=== PATIENT | female | born 1955 | race Caucasian/White ===

== ENCOUNTER 2016-06-01 06:07 | Day surgery (SDC) | payer OTHER ==
[~2016-06-01] VITALS: Ht 157.5 cm; Wt 66.9 kg
[2016-06-01 07:01] VITALS: Ht 157.5 cm; Wt 66.9 kg
[2016-06-01] MEDS ORDERED: [UNRECOGNIZED DRUG - OTHER] (07:09)
[2016-06-01] MEDS ORDERED: ZETIA (07:09)
[2016-06-01 07:54] VITALS: BP 118/60; PULSE 70; RESP 23
[2016-06-01] MEDS ORDERED: MIDAZOLAM 1 MG/ML 2 ML INJ ONE ×2 (08:29)
[2016-06-01] MEDS ORDERED: FENTAnyl 50 MCG/ML VIAL ONE (08:29)
[2016-06-01 08:51] VITALS: BP 113/65; PULSE 77; RESP 18
--- NOTE | 2016-06-01 17:37 | GILP ---
DATE OF PROCEDURE: NAME OF PROCEDURES: Colonoscopy and biopsy. SURGEON: Vinny Stock MD PREOPERATIVE DIAGNOSIS: Screening colonoscopy. POSTOPERATIVE DIAGNOSES: 1. Colonoscopy all the way to the cecum. 2. Small sigmoid colon polyp was removed using the biopsy forceps. 3. Internal hemorrhoids. INDICATION FOR THE PROCEDURE: Ms. Britt Schilling is a 60-year-old female patient who was scheduled fo r screening colonoscopy. The procedure and possible complications were well explained to the patient; she understood and cons ented to the procedure. DESCRIPTION OF PROCEDURE: Under the influence of fentanyl and Versed, the colonoscope was carefully introduced in the rectum, and under direct vision it was advanced all the way to the cecum. FINDINGS: The patient had a small sigmoid colon polyp and it was removed using the biopsy forceps. She had internal hemorrhoids. She tolerated the procedure very well and there was no complication from the procedure. At the end of the procedure, she was awake with stable vital signs and she was discharged home to the care of h er family. IMPRESSION: 1. Colonoscopy all the way to the cecum. 2. Small sigmoid colon polyp was removed. 3. Small internal hemorrhoids. PLAN: Next screening colonoscopy in 10 years. Dictated By: VINNY SULLIVAN/SHAWN Conf#: [id number] DID#: [id number]
== END 2016-06-01 09:29 | disposition home or self-care (01) ==
LOC: GIL 06:07
PROVIDERS: ATTEND Internal Medicine Gastroenterology
DX: Z12.11 Encounter for screening for malignant neoplasm of colon (principal); D12.5 Benign neoplasm of sigmoid colon; K64.8 Other hemorrhoids
CPT/HCPCS: 45380; J2250; J3010

== ENCOUNTER 2016-09-22 07:51 | Day surgery (SDC) | payer OTHER ==
[~2016-09-22] VITALS: Ht 157.5 cm; Wt 68.0 kg
[2016-09-22] VITALS (13 sets, daily range): BP systolic 113–140; BP diastolic 50–68; PULSE 75–110; RESP 16–18; Ht 157.5 cm; Wt 68.0 kg
[~2016-09-22 07:51] MED LIST: ZETIA; [UNRECOGNIZED DRUG - OTHER]
[2016-09-22] MEDS ORDERED: CEFAZOLIN 2 GM/50 ML (PMX) 50 ML IVPB SCH (09:00)
[2016-09-22] MEDS ORDERED: SOD CHLORIDE 0.9% 1,000 ML IV SCH (09:00)
[2016-09-22] MEDS ORDERED: CEFAZOLIN 1 GM/50 ML (PMX) 50 ML IVPB SCH (09:00)
[2016-09-22 09:32] LABS: ADD SCAN DIFF NO
[2016-09-22 09:41] LABS: BASOPHILS % 0.4 % (0.0-2.0); EOSINOPHILS # 0.1 10^3/ul (0.0-0.5); HEMATOCRIT 37.3 % (37.0-47.0); HEMOGLOBIN 12.4 g/dl (12.0-16.0); LYMPHOCYTES # 1.9 10^3/ul (0.8-2.9); LYMPHOCYTES % 36.9 % (15.0-51.0); MEAN CORPUSCULAR HEMOGLOBIN 29.3 pg (29.0-33.0); MEAN CORPUSCULAR HGB CONC 33.2 g/dl (32.0-37.0); MEAN CORPUSCULAR VOLUME 88.2 fl (82.0-101.0); MONOCYTE # 0.4 10^3/ul (0.3-0.9); MONOCYTES % 8.5 % (0.0-11.0); NEUTROPHIL # 2.8 10^3/ul (1.6-7.5); PLATELET COUNT 217 10^3/UL (140-415); RED BLOOD COUNT 4.23 10^6/ul (4.20-5.40); RED CELL DISTRIBUTION WIDTH 14.6 % (11.5-14.5); WHITE BLOOD COUNT 5.2 10^3/ul (4.8-10.8)
--- NOTE | 2016-09-22 09:44 | RADRPT ---
PROCEDURE: XR Chest. CLINICAL INDICATION: Preoperative, breast cancer TECHNIQUE: Single frontal view of the chest was obtained COMPARISON: 11/28/2013 FINDINGS: The heart and mediastinum are within normal limits. There is a left chest wall port in place. There is a small calcified granuloma in the right mid lung. The lungs are otherwise clear. There is no pleural effusion or pneumothorax. RPTAT: AA IMPRESSION: No acute disease. Small calcified granuloma in the right mid lung. .Jorge Grant MD, Date Time Electronically viewed and signed by .Jorge Grant MD, on 09/22/2016 09:43 .S/
[2016-09-22 09:51] LABS: INR 0.88; PROTIME 11.9 Sec (12.2-14.2); PT RATIO 0.9
[2016-09-22 09:52] LABS: PARTIAL THROMBOPLASTIN TIME 27.2 Sec (25.0-35.0)
[2016-09-22 09:53] LABS: ALBUMIN 4.3 g/dl (3.3-4.9); ALBUMIN/GLOBULIN RATIO 1.3; BILIRUBIN,INDIRECT 0.4 mg/dl (0-1.1); BILIRUBIN,TOTAL 0.4 mg/dl (0.2-1.3); TOTAL PROTEIN 7.6 g/dl (6.1-8.1)
[2016-09-22 10:00] LABS: CALCIUM 9.6 mg/dl (8.4-10.2); CREATININE 0.67 mg/dl (0.44-1.00); POTASSIUM 4.4 mmol/L (3.5-5.1)
[2016-09-22] MEDS ORDERED: LIDOCAINE 1%/EPI (MDV) 20 ML INJ ONE (10:28)
[2016-09-22] MEDS ORDERED: MIDAZOLAM 1 MG/ML 2 ML INJ ONE (10:35)
[2016-09-22] MEDS ORDERED: PROPOFOL 20 ML ONE ×2 (10:37→11:03)
[2016-09-22] MEDS ORDERED: CEFAZOLIN 1 GM INJ ONE (10:37)
[2016-09-22] MEDS ORDERED: ONDANSETRON 4 MG INJ IV PRN (11:00)
[2016-09-22] MEDS ORDERED: MEPERIDINE 25 MG INJ IV PRN (11:00)
[2016-09-22] MEDS ORDERED: OXYCODONE/ACETAMINOPHEN (5/325) TAB PO PRN ×2 (11:00)
[2016-09-22] MEDS ORDERED: DIPHENHYDRAMINE 50 MG INJ IV PRN (11:00)
[2016-09-22] MEDS ORDERED: HYDROmorphONE (0.2 MG/ML) 10ML SYG IV PRN ×3 (11:00)
--- NOTE | 2016-09-22 11:45 | OPR ---
DATE OF OPERATION: 09/22/2016 PREOPERATIVE DIAGNOSIS: History of breast cancer, need for chemotherapy port removal. POSTOPERATIVE DIAGNOSIS: History of breast cancer, need for chemotherapy port removal. OPERATION PERFORMED: Removal of chemo port left subclavian location. ANESTHESIA: General. ANESTHESIOLOGIST: Eugenie Valentine MD SURGEON: Lucas Hernández MD BOAT MECHANIC: None. INDICATIONS FOR PROCEDURE: The patient is a 61-year-old female who I previously treated for invasiv e cancer of the left breast. She completed her treatment and requested removal of her chemo port. She consented and was scheduled for surgery. DESCRIPTION OF PROCEDURE: The patient was brought to the operating theater, placed under general an esthesia. The left anterior thoracic region was prepped and draped in the usual sterile fashion. P revious surgical incisional scar directly over the port was reincised with 15 blade scalpel. Subcut aneous tissue was dissected with cautery. The pseudocapsule surrounding the port was incised. The port was then gently elevated and dissected free from surrounding tissue. It was withdrawn, it appe ared to be intact. It was sent for permanent pathologic analysis to ensure that it was grossly inta ct. The wound was irrigated. Minimal bleeding was controlled with cautery. The area was infiltrat ed with 1% lidocaine local anesthetic with epinephrine, and the skin was reapproximated with 2-0 nyl on sutures in vertical mattress fashion. The patient tolerated procedure well. Estimated blood los s was 10 mL. There were no complications and the patient was transported in stable condition to the recovery room. Dictated By: LUCAS LEE/SHAWN Conf#: [id number] DID#: [id number]
--- NOTE | 2016-09-22 16:42 | RADRPT ---
Vent Rate: 68 bpm RR Interval: 0 msec MA Interval: 146 msec QRS Duration: 82 msec QT Interval: 400 msec QTC Interval: 425 msec P-R-T [place]: 36 - 12 - 42 degrees Normal sinus rhythm Normal ECG Electronically Signed By: Harvey Enriquez [id number]
== END 2016-09-22 13:20 | disposition home or self-care (01) ==
LOC: SDS 07:51
PROVIDERS: ATTEND Surgery Surgical Oncology
DX: Z45.2 Encounter for adjustment and management of vascular access device (principal); Z85.3 Personal history of malignant neoplasm of breast
CPT/HCPCS: 36590; 71010; 80053; 85025; 85610; 85730; 93005; J0690; J2250